=== PATIENT | male | born 1990 | race Caucasian/White ===

== ENCOUNTER 2023-09-05 10:01 | Emergency (ER) | payer MEDICAID ==
[~2023-09-05] VITALS: Ht 175.3 cm; Wt 60.1 kg
[2023-09-05 11:30] VITALS: BP 125/85; PULSE 92; RESP 16; TEMP 97.9; O2SAT 100
== END 2023-09-05 13:32 | disposition home or self-care (01) ==
LOC: ER 10:01
DX: M23.91 Unspecified internal derangement of right knee (principal)
CPT/HCPCS: 73562